=== PATIENT | female | born 1940 | race Caucasian/White ===

== ENCOUNTER 2018-06-08 22:43 | Emergency (ER) | payer MEDICARE, OTHER ==
[2018-06-09] MEDS ORDERED: NORMAL SALINE 1000 ML 1,000 ML IV ONE (00:05)
[2018-06-09] MEDS ORDERED: KETOROLAC TROMETHAMINE INJ/PF 30 MG/1 ML SDV IV ONE (00:05)
[2018-06-09] MEDS ORDERED: ONDANSETRON HCL INJ/PF 4 MG/2 ML SDV IV ONE (00:05)
[2018-06-09 00:42] LABS: ABSOLUTE EOSINOPHILS # (AUTO) 0.1 10^3/uL (0.0-0.6); ABSOLUTE LYMPHOCYTES (AUTO) 0.8 10^3/uL (0.5-4.7); ABSOLUTE MONOCYTES (AUTO) 0.6 10^3/uL (0.1-1.4); ABSOLUTE NEUT (AUTO) 10.5 10^3/uL (1.7-8.2); BASOPHILS % (AUTO) 0.3 % (0-2); EOSINOPHILS % (AUTO) 0.7 % (0-6); HEMATOCRIT 43.5 % (36.0-47.0); HEMOGLOBIN 14.7 g/dL (12.0-15.5); LYMPHOCYTES % (AUTO) 6.8 % (13-45); MEAN CORPUSCULAR HEMOGLOBIN 29.8 pg (27.0-33.4); MEAN CORPUSCULAR HGB CONC 33.8 g/dL (32.0-36.0); MEAN CORPUSCULAR VOLUME 88 fl (80-97); PLATELET COUNT 127 10^3/uL (150-450); RED BLOOD COUNT 4.95 10^6/uL (3.72-5.28); RED CELL DISTRIBUTION WIDTH 13.8 % (11.5-14.0); SEGMENTED NEUTROPHILS % (AUTO) 87.2 % (42-78); TOTAL CELLS COUNTED % (AUTO) 100 %
--- NOTE | 2018-06-09 00:58 | RADIOLOGY REPORT (SQ) ---
EXAM DESCRIPTION: CT ABDOMEN WITHOUT IV CONTRAST COMPLETED DATE/TME: 06/09/2018 00:10 CLINICAL HISTORY: 77 years, Female, left flank pain COMPARISON: None. TECHNIQUE: Two CT images of the abdomen and pelvis were obtained without contrast. DLP 287 Images stored on PACS. All CT scanners at this facility use dose modulation, iterative reconstruction, and/or weight based dosing when appropriate to reduce radiation dose to as low as reasonably achievable (ALARA). [facility]: Dose Right [facility]: CareDose [facility]: Dose Right [facility]: Teradose 4D [facility]: [employer] LIMITATIONS: None. FINDINGS: Lung bases are clear. The liver contains subcentimeter hypodensities, which are too small to further characterize. The gallbladder, pancreas, spleen, and adrenal glands are unremarkable. The right kidney appears normal. There is no hydronephrosis or urolithiasis. There is a 3 mm stone within the distal left ureter causing mild hydroureter and hydronephrosis. The left kidney is edematous with perinephric stranding and perinephric fluid. There is no intraperitoneal free air or fluid. There is no lymphadenopathy. The abdominal aorta is normal in caliber. The stomach, small bowel, and appendix are unremarkable. Diverticulosis is noted without evidence of diverticulitis. Hysterectomy. The urinary bladder is unremarkable. There is mild grade 1 anterolisthesis of L4 over L5. There is multilevel spondylosis. IMPRESSION: 3 mm stone within the distal left ureter causing mild hydroureter and hydronephrosis. Edematous left kidney with perinephric fluid and stranding. Pyelonephritis may be present. TECHNICAL DOCUMENTATION: Quality ID # 436: Final reports with documentation of one or more dose reduction techniques (e.g., Automated exposure control, adjustment of the mA and/or kV according to patient size, use of iterative reconstruction technique) 2010 [employer]- All Rights Reserved
[2018-06-09 01:04] LABS: ALANINE AMINOTRANSFERASE 32 U/L (9-52); ALBUMIN 4.4 g/dL (3.5-5.0); ALKALINE PHOSPHATASE 84 U/L (38-126); ANION GAP 13 (5-19); ASPARTATE AMINO TRANSFERASE 47 U/L (14-36); BILIRUBIN,DIRECT 0.2 mg/dL (0.0-0.4); BILIRUBIN,TOTAL 0.5 mg/dL (0.2-1.3); BLOOD UREA NITROGEN 35 mg/dL (7-20); CALCIUM 10.5 mg/dL (8.4-10.2); CARBON DIOXIDE 26 mmol/L (22-30); CHLORIDE 106 mmol/L (98-107); GLUCOSE 121 mg/dL (75-110); LIPASE 181.4 U/L (23-300); POTASSIUM 4.1 mmol/L (3.6-5.0); SODIUM 144.5 mmol/L (137-145); TOTAL PROTEIN 7.8 g/dL (6.3-8.2)
[2018-06-09 01:16] LABS: APPEARANCE,URINE SLIGHTLY-CLOUDY; BILIRUBIN,URINE NEGATIVE (NEGATIVE); COLOR,URINE YELLOW; GLUCOSE, URINE NEGATIVE (NEGATIVE); KETONES,URINE NEGATIVE (NEGATIVE); LEUKOCYTE ESTERASE,URINE NEGATIVE (NEGATIVE); NITRITE,URINE NEGATIVE (NEGATIVE); PROTEIN,URINE NEGATIVE (NEGATIVE); URINE SPECIFIC GRAVITY 1.015; UROBILINOGEN,URINE NEGATIVE mg/dL (<2.0)
[2018-06-09] MEDS ORDERED: CEFTRIAXONE INJ 1000 MG VIAL IV ONE (01:41)
--- NOTE | 2018-06-09 01:43 | ER Document Report ---
ED GI/ - General Chief Complaint: Flank Pain Stated Complaint: FLANK PAIN Time Seen by Provider: 06/08/18 23:50 Mode of Arrival: Ambulatory Information source: Patient Notes: Patient is a 77-year-old female who presents to the emergency department today with complaint of left flank pain. Patient reports the pain started suddenly at 6 PM. She reports associated fever and chills. She reports nausea and vomiting but denies any diarrhea. Patient reports that the left flank pain radiates down to the low abdomen. She states that approximately 1 week ago she was seen at an emergency department in [place] and diagnosed with a urinary tract infection. She was put on Keflex. She states that she did not followed up several days later with a urologist who told her that her culture was "very infected" but told her to stop taking the Keflex. The plan was for her to have a CAT scan done after the holidays to see if she had a kidney stone. Patient has no history of kidney stones. Patient reports past medical history of hypertension, chronic neck and back pain and diverticulitis. TRAVEL OUTSIDE OF THE [place] IN LAST 30 DAYS: No - Related Data Allergies/Adverse Reactions: Quinolones Allergy (Verified 06/08/18 22:48) Sulfa (Sulfonamide Antibiotics) Allergy (Verified 06/08/18 22:48) Past Medical History - General Information source: Patient - Social History Smoking Status: Never Smoker Frequency of alcohol use: None Drug Abuse: None Family History: Reviewed & Not Pertinent - Past Medical History Cardiac Medical History: Reports: Hx Hypertension Renal/ Medical History: Reports: Other - Recent urinary tract infection Musculoskeletal Medical History: Reports Other - Chronic neck and back pain Surgical Hx: Negative - Immunizations Immunizations up to date: Yes Review of Systems - Review of Systems Constitutional: Chills, Fever Gastrointestinal: Nausea, Vomiting Genitourinary: Flank pain, Hematuria -: Yes All other systems reviewed and negative Physical Exam - Vital signs Vitals: Temp Pulse Resp BP Pulse Ox 98 F 78 18 126/90 H 98 06/08/18 23:09 06/08/18 23:09 06/08/18 23:09 06/08/18 23:09 06/08/18 23:09 - Notes Notes: PHYSICAL EXAMINATION: GENERAL: Mildly ill-appearing, well-nourished but in no acute distress. HEAD: Atraumatic, normocephalic. EYES: Pupils equal round and reactive to light, extraocular movements intact, conjunctiva are normal. ENT: Nares patent, oropharynx clear without exudates. Moist mucous membranes. NECK: Normal range of motion, supple without lymphadenopathy LUNGS: Breath sounds clear to auscultation bilaterally and equal. No wheezes rales or rhonchi. HEART: Regular rate and rhythm without murmurs ABDOMEN: Soft, nondistended abdomen. Mild tenderness to palpation to the left suprapubic area. No guarding, no rebound. No masses appreciated. Female : Left CVA tenderness Musculoskeletal: Normal range of motion, no pitting or edema. No cyanosis. NEUROLOGICAL: Cranial nerves grossly intact. Normal speech, normal gait. Normal sensory, motor exams PSYCH: Normal mood, normal affect. SKIN: Warm, Dry, normal turgor, no rashes or lesions noted. Course - Re-evaluation Re-evalutation: CBC with mild leukocytosis, WBC 12,000. CMP, lipase and lactic acid are unremarkable. Urinalysis has hematuria but otherwise no acute findings. CTA renal stone protocol reveals 3 mm stone within the distal left ureter causing mild hydroureter and hydronephrosis. Edematous left kidney with perinephric fluid and stranding. Possible pyelonephritis. Patient reports complete resolution of her pain after administration of 1 dose of IV Toradol 15 mg. Patient was given 1000 mL normal saline. Patient's vital signs have been stable throughout her stay. Patient has not had any episodes of tachycardia, fever, hypoxia or hypotension. 06/09/18 01:41 Called [facility] to attempt to get patient transferred for infected kidney stone. Spoke with Dr. Aurelia Santana who recommends starting patient on antibiotics and discharging home. He states that he can see her in his office in [place] either later today or Friday. I discussed this with the patient and her family. They would like me to make an additional phone call to [facility] as they do not feel comfortable waiting for a follow-up all the way in [place]. 06/09/18 02:30 Contacted [facility] per family's request for second opinion. Spoke with Dr. Tello with [facility] urology. He recommends starting patient on Flomax, sending patient home with strainer and following up in his office this morning. He states he has office hours this morning in the [place] office. The patient and family are agreeable to this plan. Patient will be discharged home with Zofran and hydrocodone dispense packs. Patient given strainer. Patient given prescription for Flomax, hydrocodone and cephalexin. - Vital Signs Vital signs: Temp Pulse Resp BP Pulse Ox 97.7 F 78 11 L 103/76 94 06/09/18 03:00 06/08/18 23:09 06/09/18 02:35 06/09/18 02:35 06/09/18 02:35 - Laboratory Result Diagrams: 06/09/18 00:28 06/09/18 00:28 Laboratory results interpreted by me: 06/09/18 06/09/18 06/09/18 00:28 00:28 00:28 WBC 12.0 H Plt Count 127 L Seg Neutrophils % 87.2 H Lymphocytes % 6.8 L Absolute Neutrophils 10.5 H BUN 35 H Glucose 121 H Calcium 10.5 H AST 47 H Urine Blood LARGE H Discharge - Discharge Disposition: [facility] Additional Instructions: You have an infected kidney stone. Please take the medications as prescribed. They may help you pass the kidney stone. I spoke with a urologist from [facility], his name is Dr. Tello. He recommends starting you on Flomax which will help dilate the ureter in an attempt to help you pass the stone. He also recommend starting you on antibiotics. Unfortunately you are allergic to both antibiotics that were recommended. For this reason you were given 1 g of Rocephin IV and I will start you on cephalexin/Keflex. His office opens at 830 this morning. He said that he will be in the office at this morning and would like to see you. In the meantime if you develop a fever of 101.5 or greater he would like you to go directly to the emergency department at [facility] in [place]. If you are unable to get to [facility] emergency department where happy to see you here at [facility] and can evaluate you and arrange for any possible transfer needed. I have included copies of all of your paperwork as well as a disc of your CAT scan for Dr. Tello's review. Medications: Take a Flomax 0.4 mg 1 tablet once daily. Take hydrocodone 5/325 1 tablet every 4 hours as needed for pain. Take ondansetron 4 mg every 6 hours as needed for nausea or vomiting. Take ibuprofen 400 mg every 6 hours for pain and inflammation. Take Keflex 1 tablet 4 times daily until directed differently by urology. [facility] [address] [place] [address] Dr. Tello Prescriptions: Cephalexin [Cephalexin 500 MG Tablet] 1 tab PO QID #28 tablet Hydrocodone Bit/Acetaminophen [Hydrocodon-Acetaminophen 5-325] 1 each PO Q4H # 12 tablet Tamsulosin HCl [Flomax] 0.4 mg PO DAILY #6 cap.er.24h
[2018-06-09] MEDS ORDERED: CEPHALEXIN 500 MG CAPSULE PO ONE (02:30)
[2018-06-09] MEDS ORDERED: TAMSULOSIN HCL 0.4 MG CAP.SR.24H PO ONE (02:33)
[2018-06-09] MEDS ORDERED: ONDANSETRON ODT 4 MG TAB (6 TAB/ER DISP) PO PRN (02:34)
[2018-06-09] MEDS ORDERED: HYDROCODONE/ACETAMINOPHEN 5-325 MG (6 TAB/ER DISP) PO PRN (02:34)
[2018-06-09 03:01] VITALS: BP 103/76
== END 2018-06-09 03:15 | disposition home or self-care (01) ==
LOC: ER 22:43
DX: N20.0 Calculus of kidney (principal); N39.0 Urinary tract infection, site not specified; R10.9 Unspecified abdominal pain; R50.9 Fever, unspecified; R11.2 Nausea with vomiting, unspecified; R10.31 Right lower quadrant pain; I10 Essential (primary) hypertension; M54.2 Cervicalgia; M54.9 Dorsalgia, unspecified; G89.29 Other chronic pain
CPT/HCPCS: 99285; 96361; 96375; 96365; 36415; 87040; 87086; 83690; 85025; 80053; 81001; 83605; 76380; J1885; A9270 ×3; J0696; J2405; J7030